=== PATIENT | female | born 1955 | race Caucasian/White ===

== ENCOUNTER 2020-09-28 10:31 | Outpatient (REF) | payer MEDICARE, OTHER, SELFPAY ==
[2020-09-28 14:52] LABS: Estimated Average Glucose 117 mg/dL; Hemoglobin A1c % 5.7 %
== END 2020-09-28 10:32 | disposition home or self-care (01) ==
LOC: HO.HMGCLDS 10:31
PROVIDERS: PCP Internal Medicine; Visit Provider Internal Medicine
DX: F32.9 Major depressive disorder, single episode, unspecified (principal); R73.9 Hyperglycemia, unspecified
CPT/HCPCS: 83036

== ENCOUNTER 2021-12-04 07:22 | Outpatient (REF) | payer MEDICARE, OTHER, SELFPAY ==
--- NOTE | ~2021-12-04 | XR_ITS ---
EXAMINATION: XR HAND, LEFT CLINICAL INFORMATION: Pain. COMPARISON: None TECHNIQUE: PA, lateral, and oblique views of the left hand. FINDINGS: There is mild bony demineralization. There is mild osteoarthritic change of the second distal interphalangeal joint, with peripheral osteophyte formation. No fracture or dislocation is seen. The proximal and distal carpal rows are intact. The soft tissue planes are unremarkable, without gas or foreign body. XR/XR hand LT min 3V IMPRESSION: 1. There is mild osteoarthritic change of the second distal interphalangeal joint. 2. No fracture or dislocation is seen.
== END 2021-12-04 07:23 | disposition home or self-care (01) ==
LOC: HO.HOSX 07:22
PROVIDERS: Visit Provider Physician Assistant
DX: M65.342 Trigger finger, left ring finger (principal)
CPT/HCPCS: 73130; 99202

== ENCOUNTER 2021-12-06 11:39 | Outpatient (REF) | payer MEDICARE, OTHER, SELFPAY ==
--- NOTE | ~2021-12-06 | MM_ITS ---
EXAMINATION: MM SCREENING DIGITAL BREAST TOMOSYNTHESIS, BILATERAL CLINICAL INFORMATION: Screening. Asymptomatic. The lifetime risk of breast cancer based on the Tyrer-Cuzick Model is 5.1%. COMPARISON: Mammography: August 02, 2020 and studies dating back to August 04, 2013 TECHNIQUE: Digital breast tomosynthesis is performed in both the craniocaudal and mediolateral oblique views along with computer-aided detection (CAD). Synthesized 2D images are generated from the tomosynthesis. FINDINGS: There are scattered areas of fibroglandular density (ACR BI-RADS breast composition Category b). There are no significant masses, abnormal calcifications, or other abnormalities. MM/MM tomosynthesis screening BI IMPRESSION: There are no significant changes from prior study. ASSESSMENT: BI-RADS 1: Negative RECOMMENDATION: Routine annual mammography screening. This patient's information was entered into a reminder system with a target due date for their next mammogram.
== END 2021-12-06 11:40 | disposition home or self-care (01) ==
LOC: HO.MAMMO 11:39
PROVIDERS: Visit Provider Internal Medicine
DX: Z12.31 Encounter for screening mammogram for malignant neoplasm of breast (principal)
CPT/HCPCS: 77063; 77067

== ENCOUNTER → 2022-01-15 09:43 | Outpatient (BNVA) | payer MEDICARE, OTHER, SELFPAY | PROVIDERS: PCP Internal Medicine; Visit Provider Physician Assistant | DX: M65.342 Trigger finger, left ring finger (principal) | CPT/HCPCS: 99212; J1100 ==

== ENCOUNTER 2022-05-17 09:20 | Outpatient (REF) | payer MEDICARE, OTHER, SELFPAY ==
[2022-05-17 12:03] LABS: Hematocrit 43.9 % (37.0-47.0); Hemoglobin 14.6 g/dl (12.0-16.0); Mean Corpuscular HGB Conc 33.3 g/dl (31.0-35.0); Mean Corpuscular Hemoglobin 29.4 pg (27.0-33.0); Mean Corpuscular Volume 88.5 fL (80.0-98.0); Platelet Count 292 X10*3/uL (160-400); Red Blood Count 4.96 X10*6/uL (4.20-5.50); Red Cell Distribution Width 13.1 % (11.0-16.0); White Blood Count 7.2 X10*3/uL (4.8-10.8)
[2022-05-17 12:32] LABS: Alanine Aminotransferase 18 U/L (0-31); Albumin Level 4.4 g/dL (3.5-5.0); Alkaline Phosphatase 83 U/L (39-117); Anion Gap 14 (12-20); Aspartate Amino Transferase 18 U/L (5-31); Bilirubin Total 0.5 mg/dL (0.0-1.0); Blood Urea Nitrogen 16 mg/dL (9-16); Calcium 9.3 mg/dL (8.4-10.2); Carbon Dioxide 26 mmol/L (22-29); Chloride 104 mmol/L (96-108); Cholesterol 140 mg/dL; Estimated Glomerular Filt Rate > 60; Glucose Fasting 115 mg/dL (60-99); HDL Cholesterol 56 mg/dL; LDL Cholesterol Calculated 61 mg/dl; Potassium 3.8 mmol/L (3.3-5.1); Sodium 140 mmol/L (135-145); Total Protein 7.4 g/dL (6.5-8.0); Triglycerides 119 mg/dL
[2022-05-17 12:50] LABS: Estimated Average Glucose 117 mg/dL; Hemoglobin A1c % 5.7 %
[2022-05-17 13:01] LABS: Vitamin D 25-OH Total 23.9 ng/mL (>30)
== END 2022-05-17 09:21 | disposition home or self-care (01) ==
LOC: HO.HMGCLDS 09:20
PROVIDERS: PCP Internal Medicine; Visit Provider Internal Medicine
DX: I10 Essential (primary) hypertension (principal); E78.5 Hyperlipidemia, unspecified; R73.9 Hyperglycemia, unspecified
CPT/HCPCS: 36415; 80053; 80061; 82306; 83036; 85027

== ENCOUNTER 2022-07-25 13:30 | Outpatient (REF) | payer MEDICARE, OTHER, SELFPAY ==
[2022-07-25 17:05] LABS: Anion Gap 14 (12-20); Blood Urea Nitrogen 19 mg/dL (9-16); Calcium 9.5 mg/dL (8.4-10.2); Carbon Dioxide 27 mmol/L (22-29); Chloride 103 mmol/L (96-108); Estimated Glomerular Filt Rate 57; Glucose Random 101 mg/dL (60-115); Sodium 140 mmol/L (135-145)
== END 2022-07-25 13:31 | disposition home or self-care (01) ==
LOC: HO.HMGCLDS 13:30
PROVIDERS: PCP Internal Medicine; Visit Provider Internal Medicine
DX: I10 Essential (primary) hypertension (principal)
CPT/HCPCS: 36415; 80048

== ENCOUNTER 2022-09-04 11:29 | Outpatient (REF) | payer MEDICARE, OTHER, SELFPAY | END 2022-09-04 11:30 | disposition home or self-care (01) | LOC: HO.SH 11:29 | PROVIDERS: Visit Provider Internal Medicine | DX: Z01.118 Encounter for examination of ears and hearing with other abnormal findings (principal); H90.3 Sensorineural hearing loss, bilateral | CPT/HCPCS: 92557 ==

== ENCOUNTER 2022-09-04 12:29 | Outpatient (REF) | payer SELFPAY ==
--- NOTE | 2022-09-04 15:43 | MHC.AU.HAS ---
Hearing Aid Evaluation Date of Visit: 09/04/22 Historical Information: Description of Hearing: Within normal sloping to moderately-severe sensorineural hearing loss, bilaterally Hearing Aid Prescription: Based on the individual?s shared listening needs, communication environments, dexterity, desire for connectivity, and personal preferences, the following prescription for amplification has been made: Right ear: Immunology Specialist: Phonak Model: Audeo P70-R Battery Size: Rechargeable Color: P5 - Champagne Regasification Plant Operator: 1M Type of Mold: Small open dome Left ear: Left ear prescription to be same as Right Hearing Aid above: Immunology Specialist: Phonak Model: Audeo P70-R Battery Size: Rechargeable Color: P5 - Champagne Regasification Plant Operator: 1M Type of Mold: Small open dome Plan of Care: Patient wishes to purchase hearing aids as prescribed Action Taken/Action Needed: Hearing Instrument Fitting to be scheduled when materials arrive Primary Diagnosis: H90.3 Bilateral Sensorineural Hearing Loss Signature: Provider: Darwin Lowe, CCC-A
== END 2022-09-04 12:30 | disposition home or self-care (01) ==
LOC: HO.HAP 12:29
PROVIDERS: Visit Provider Internal Medicine
DX: Z46.1 Encounter for fitting and adjustment of hearing aid (principal); H90.3 Sensorineural hearing loss, bilateral
CPT/HCPCS: 92590

== ENCOUNTER 2022-09-30 14:28 | Outpatient (REF) | payer SELFPAY ==
--- NOTE | 2022-09-30 15:48 | MHC.AU.HFA ---
Hearing Instrument Fitting- Adult- Binaural Date of Visit: 09/30/22 Hearing Instruments Dispensed: Right Ear: Phonak Audeo P70-R SN: [id number] Color: Champagne Repair Warranty: 12/03/2025 Loss and Damage Warranty: 12/03/2025 Service Plan: 09/30/2025 Battery Size: Rechargeable [employer] Hand Finisher: 1M Type of Mold: Small open dome Type of Wax Guard: CeruShield Left Ear: Phonak Audeo P70-R SN: [id number] Color: Champagne Repair Warranty: 12/03/2025 Loss and Damage Warranty: 12/03/2025 Service Plan: 09/30/2025 Battery Size: Rechargeable [employer] Hand Finisher: 1M Type of Mold: Small open dome Type of Wax Guard: CeruShield Summary of Fitting: Feedback air quality manager performed. Could not perform real ear measures due to technical difficulties - will perform at follow up visit. Comfortable at NAL-NL2 initial fit settings. Discussed care, use, and rechargeability including changing wax guards and domes, manually turning on/off, and volume control use. Practiced insertion and removal. Luann Walter had some difficulty inserting the hearing aids but is motivated to practiced. Explained importance of consistent use and acclimatization period. Recommendations: A hearing instrument follow-up was scheduled. Please call our clinic with any questions or concerns. Recommendations (Other): Need to perform real ear measurements at follow up. Diagnosis Code(s): Primary Diagnosis: H90.3 Bilateral Sensorineural Hearing Loss Signature: Provider: Darwin Lowe, [facility]
== END 2022-09-30 14:29 | disposition home or self-care (01) ==
LOC: HO.HAP 14:28
PROVIDERS: Visit Provider Internal Medicine
DX: Z46.1 Encounter for fitting and adjustment of hearing aid (principal); H90.3 Sensorineural hearing loss, bilateral
CPT/HCPCS: V5261; V5299

== ENCOUNTER 2022-10-29 11:30 | Outpatient (REF) | payer SELFPAY ==
--- NOTE | 2022-10-29 12:45 | MHC.AU.HA3 ---
Hearing Instrument Follow-Up- Binaural Date of Visit: 10/29/22 Right Ear: Yon, Model, Color, Serial Number: Cris Min P70-R SN: [id number] Color: Saraye Metal Sprayer Repair Warranty: 12/03/2025 Metal Sprayer Loss and Damage Warranty: 12/03/2025 [facility] Service Plan: 09/30/2025 Battery Size: Rechargeable Head Stock Operator/Slim Tube: 1M Earmold/Dome/CShell/SlimTip:Small open dome Type of Wax Guard: CeruShield Dispensed By: [facility] Date of Fittin09/30/2022 Left Ear: Yon, Model, Color, Serial Number: Cris Min P70-R SN: [id number] Color: Saraye Metal Sprayer Repair Warranty: 12/03/2025 Metal Sprayer Loss and Damage Warranty: 12/03/2025 [facility] Service Plan: 09/30/2025 Battery Size: Rechargeable Head Stock Operator/Slim Tube: 1M Earmold/Dome/CShell/SlimTip: Small open dome Type of Wax Guard: CeruShield Dispensed By: [facility] Date of Fittin09/30/2022 Follow-Up Summary: Luann Walter reported that overall she is doing well with the hearing aids. She notices significant benefit, especially hearing her grandchildren. Reviewed manually turning the hearing aids on/off, changing the wax guards and domes, and volume control use. Otherwise, Luann Walter has been satisfied with the sound quality and overall fit of the hearing aids. Did not perform real ear measurements, as Luann Walter did not want any programming adjustments. Data logging showed about 8 hours of use per day. Recommendations: Hearing instrument maintenance in 6 months, or sooner if needed. Recommendations (Other): Luann Walter reported that she does not need an additional follow up appointment at this time. With that, she knows this rocha the end of the adjustment period and she can no longer return the hearing aids after today. Diagnosis Code(s): Primary Diagnosis: H90.3 Bilateral Sensorineural Hearing Loss Signature: Provider: Darwin Lowe, [facility]
== END 2022-10-29 11:31 | disposition home or self-care (01) ==
LOC: HO.HAP 11:30
PROVIDERS: Visit Provider Internal Medicine
DX: Z13.89 Encounter for screening for other disorder (principal)

== ENCOUNTER 2022-11-16 09:16 | Outpatient (REF) | payer MEDICARE, OTHER, SELFPAY ==
[2022-11-16 11:19] LABS: Estimated Average Glucose 105 mg/dL; Hemoglobin A1c % 5.3 %
[2022-11-16 11:26] LABS: Alanine Aminotransferase 9 U/L (0-31); Albumin Level 4.4 g/dL (3.5-5.0); Alkaline Phosphatase 91 U/L (39-117); Anion Gap 13 (12-20); Aspartate Amino Transferase 14 U/L (5-31); Bilirubin Total 0.5 mg/dL (0.0-1.0); Blood Urea Nitrogen 11 mg/dL (9-16); Calcium 9.4 mg/dL (8.4-10.2); Carbon Dioxide 26 mmol/L (22-29); Chloride 106 mmol/L (96-108); Estimated Glomerular Filt Rate > 60; Glucose Fasting 114 mg/dL (60-99); Potassium 4.2 mmol/L (3.3-5.1); Sodium 141 mmol/L (135-145); Total Protein 7.1 g/dL (6.5-8.0)
== END 2022-11-16 09:17 | disposition home or self-care (01) ==
LOC: HO.HMGCLDS 09:16
PROVIDERS: PCP Internal Medicine; Visit Provider Internal Medicine
DX: I10 Essential (primary) hypertension (principal); R73.9 Hyperglycemia, unspecified; E78.5 Hyperlipidemia, unspecified
CPT/HCPCS: 36415; 80053; 83036

== ENCOUNTER 2022-12-12 11:45 | Outpatient (REF) | payer MEDICARE, OTHER, SELFPAY ==
--- NOTE | ~2022-12-12 | MM_ITS ---
EXAMINATION: MM SCREENING DIGITAL BREAST TOMOSYNTHESIS, BILATERAL CLINICAL INFORMATION: Screening. Asymptomatic. The lifetime risk of breast cancer based on the Tyrer-Cuzick Model is 8%. COMPARISON: Mammography: December 06, 2021 and studies dating back to August 04, 2013. TECHNIQUE: Digital breast tomosynthesis is performed in both the craniocaudal and mediolateral oblique views along with computer-aided detection (CAD). Synthesized 2D images are generated from the tomosynthesis. FINDINGS: The breasts are heterogeneously dense, which may obscure small masses (ACR BI-RADS breast composition Category c). There are no new significant masses, abnormal calcifications, or other abnormalities. Stable postsurgical change right breast noted. MM/MM tomosynthesis screening BI IMPRESSION: No significant changes from prior exam. ASSESSMENT: BI-RADS 2: Benign RECOMMENDATION: Routine annual mammography screening. This patient's information was entered into a reminder system with a target due date for their next mammogram.
== END 2022-12-12 11:46 | disposition home or self-care (01) ==
LOC: HO.MAMMO 11:45
PROVIDERS: PCP Internal Medicine; Visit Provider Internal Medicine
DX: Z12.31 Encounter for screening mammogram for malignant neoplasm of breast (principal)
CPT/HCPCS: 77063; 77067

== ENCOUNTER 2023-06-17 10:17 | Outpatient (REF) | payer MEDICARE, OTHER, SELFPAY ==
[2023-06-17 13:20] LABS: MANUAL DIFF FLAG NO
[2023-06-17 13:59] LABS: Basophils Absolute Auto 0.1 X10*3/uL (0.0-0.2); Basophils Percent Auto 0.6 % (0-2); Eosinophils Absolute Auto 0.2 X10*3/uL (0.0-0.4); Eosinophils Percent Auto 2.6 % (0-4); Hematocrit 43.6 % (37.0-47.0); Hemoglobin 14.3 g/dl (12.0-16.0); Imm Gran Abs Auto 0.03 X10*3/uL (0.00-0.03); Imm Gran Pct Auto 0.3 % (0.0-0.4); Lymphocytes Absolute Auto 1.9 X10*3/uL (1.2-4.9); Lymphocytes Percent Auto 21.6 % (20-40); Mean Corpuscular HGB Conc 32.8 g/dl (31.0-35.0); Mean Corpuscular Hemoglobin 29.7 pg (27.0-33.0); Mean Corpuscular Volume 90.5 fL (80.0-98.0); Mean Platelet Volume 10.7 fL (9.4-12.3); Monocytes Absolute Auto 0.6 X10*3/uL (0.1-1.2); Monocytes Percent Auto 6.6 % (2-11); Neutrophils Percent Auto 68.3 % (45-73); Platelet Count 284 X10*3/uL (160-400); Red Blood Count 4.82 X10*6/uL (4.20-5.50); Red Cell Distribution Width 12.9 % (11.0-16.0); White Blood Count 8.8 X10*3/uL (4.8-10.8)
[2023-06-17 14:05] LABS: Estimated Average Glucose 111 mg/dL; Hemoglobin A1c % 5.5 %
[2023-06-17 14:29] LABS: Alanine Aminotransferase 15 U/L (0-31); Albumin Level 4.5 g/dL (3.5-5.0); Alkaline Phosphatase 86 U/L (39-117); Anion Gap 14 (12-20); Aspartate Amino Transferase 17 U/L (5-31); Bilirubin Total 0.9 mg/dL (0.0-1.0); Blood Urea Nitrogen 18 mg/dL (9-16); Carbon Dioxide 27 mmol/L (22-29); Chloride 104 mmol/L (96-108); Cholesterol 155 mg/dL; Estimated Glomerular Filt Rate 57; Glucose Fasting 107 mg/dL (60-99); HDL Cholesterol 59 mg/dL; LDL Cholesterol Calculated 71 mg/dl; Potassium 3.9 mmol/L (3.3-5.1); Sodium 141 mmol/L (135-145); Total Protein 7.8 g/dL (6.5-8.0); Triglycerides 129 mg/dL
[2023-06-17 14:49] LABS: TSH reflex Free T4 0.76 uIU/mL (0.32-4.0); Vitamin D 25-OH Total 23.5 ng/mL (>30)
== END 2023-06-17 10:18 | disposition home or self-care (01) ==
LOC: HO.HMGCLDS 10:17
PROVIDERS: PCP Internal Medicine; Visit Provider Internal Medicine
DX: I10 Essential (primary) hypertension (principal); E78.5 Hyperlipidemia, unspecified; R73.9 Hyperglycemia, unspecified; E55.9 Vitamin D deficiency, unspecified
CPT/HCPCS: 36415; 80053; 80061; 82306; 83036; 84443; 85025

== ENCOUNTER 2023-06-19 12:01 | Outpatient (AMB) | payer MEDICARE, OTHER, SELFPAY ==
--- NOTE | 2023-06-19 12:05 | A.OFFPC_ITS ---
Vital Signs 06/19/23 12:06 Height 5 ft 5 in Weight 180 lb BMI 30.0 BP 125/80 Blood Pressure Location Lt brachial Position Sitting Pulse 72 Pulse Source Pulse Oximeter Pulse Oximetry (%) 98 Oxygen Delivery Method Room Air Intake Visit Reasons: PE/Hypertension Intake Note: pt is here for a PE Allergies latex Allergy (Mild, Uncoded 06/19/23 12:08) rash shellfish Allergy (Mild, Uncoded 06/19/23 12:08) rash Medication List - Last Reconciled 06/19/23 by Cari Gonzalez MD atorvastatin 20 mg PO DAILY losartan 100 mg PO DAILY 90 days sertraline 50 mg PO DAILY triamterene-hydrochlorothiazid 37.5-25 mg 1 tab PO DAILY Tobacco use date assessed: 06/19/23 Fall risk assessment: No Falls in past year Dental Screening Dental Screen Date: 06/19/23 Did you have a dental visit in the last 12 months?: Yes Did you have a dental problem in the last 6 months where you did not have access to dental care?: No Was dental information given to patient?: Patient has dentist HPI PE/Hypertension HPI Details Pt presents for PE. PFSH Medical History Adenoma of colon Annual physical exam Depression Echocardiogram abnormal Hallux valgus Hand pain, left History of mammogram Hyperglycemia Hyperlipidemia Hypertension Vitamin D deficiency Surgical History H/O colonoscopy Family History Father Colon cancer Mother Stroke Social History Housing: House Patient Tobacco Use Status: Never used Tobacco e-Cigarette/Vaping Use: Never Used Current occupational status: retired Current occupation: Lt handed Cognitive needs: No Hearing needs: No Vision needs: Yes Questionnaire Thrive Questionnaire Date Thrive assessed: 03/17/23 JACE-7 AMB Questionnaire JACE-7 Date JACE - 7 assessed: 03/17/23 Source: Developed by Drs. Carroll Key, Yajaira Patterson, Jose Bahena and colleagues, with an educational nicolás from [employer]. Review of Systems Const All systems reviewed & are unremarkable except as noted in HPI and below Reports no additional complaints Eyes Reports no additional complaints ENT Reports no additional complaints Card Reports no additional complaints Resp Reports no additional complaints GI Reports no additional complaints Physical exam (Primary Care) Vital Signs: Last Vital Signs Pulse 72 06/19/23 12:06 BP 168/100 H 06/19/23 12:06 Pulse Ox 98 06/19/23 12:06 Oxygen Delivery Method Room Air 06/19/23 12:06 BMI result Body Mass Index 30.0 Tobacco/Smoking Status: Tobacco use Status Tobacco use date assessed 06/19/23 06/19/23 12:10 Patient Tobacco Use Status Never used Tobacco 06/19/23 12:10 e-Cigarette/Vaping Use Never Used 06/19/23 12:10 Thrive Assessment: Date of Thrive Assessment Date Thrive assessed 03/17/23 06/19/23 12:10 Const General: no acute distress HENMT Mouth: Normal oral and palatal mucosa present Eyes General: appearance normal, both eyes and all related structures Neck Neck: Yes no lymphadenopathy and Yes supple Resp Effort & Inspection: normal respiratory effort Auscultation: clear to auscultation bilaterally Cardio Rhythm: regular rhythm Heart sounds: S1 normal heart sound present and S2 normal heart sound present GI Inspection: Yes normal to inspection Palpation (GI): Soft to palpation Percussion: Yes normal to percussion Auscultation: normal bowel sounds Assessment and Plan Assessment & Plan (1) Annual physical exam: Code(s): Z00.00 - Encounter for general adult medical examination without abnormal findings Plan: well balanced diet, regular exercise, weight loss , f/u in 6 months with labs before (2) Hyperlipidemia: Code(s): E78.5 - Hyperlipidemia, unspecified Plan: cont statin (3) Hypertension: Comment: BP goal less than 130/80 Code(s): I10 - Essential (primary) hypertension Plan: cont meds (4) Hyperglycemia: Code(s): R73.9 - Hyperglycemia, unspecified Plan: A1C 5.5, cont ADA diet, weight loss Orders: Orders Comprehensive [place]. Panel Fast 6 Months E78.5 - Hyperlipidemia, unspecified, I10 - Essential (primary) hypertension, R73.9 - Hyperglycemia, unspecified, Z00.00 - Encounter for general adult medical examination without abnormal findings Hemoglobin A1c 6 Months E78.5 - Hyperlipidemia, unspecified, I10 - Essential (primary) hypertension, R73.9 - Hyperglycemia, unspecified, Z00.00 - Encounter for general adult medical examination without abnormal findings Lipid Panel 6 Months E78.5 - Hyperlipidemia, unspecified, I10 - Essential (primary) hypertension, R73.9 - Hyperglycemia, unspecified, Z00.00 - Encounter for general adult medical examination without abnormal findings TSH reflex Free T4 6 Months E78.5 - Hyperlipidemia, unspecified, I10 - Essential (primary) hypertension, R73.9 - Hyperglycemia, unspecified, Z00.00 - Encounter for general adult medical examination without abnormal findings Coding Level of Care Code Est Pt Prev Care >65y(71701) Diagnoses Annual physical exam Z00.00 Hyperlipidemia E78.5 Hypertension I10 Hyperglycemia R73.9
[2023-06-19 12:06] VITALS: BP 125/80; PULSE 72; O2SAT 98
== END 2023-06-19 12:58 | disposition home or self-care (01) ==
PROVIDERS: PCP Internal Medicine; Visit Provider Internal Medicine
DX: Z00.00 Encounter for general adult medical examination without abnormal findings (principal); E78.5 Hyperlipidemia, unspecified; I10 Essential (primary) hypertension; R73.9 Hyperglycemia, unspecified
CPT/HCPCS: 99397

== ENCOUNTER 2023-11-05 12:59 | Outpatient (REF) | payer SELFPAY | END 2023-11-05 13:00 | disposition home or self-care (01) | LOC: HO.HAP 12:59 | PROVIDERS: Visit Provider Internal Medicine | DX: Z13.89 Encounter for screening for other disorder (principal) ==

== ENCOUNTER 2023-11-24 12:25 | Outpatient (REF) | payer SELFPAY ==
--- NOTE | 2023-11-24 14:07 | MHC.AU.HA3 ---
Hearing Instrument Follow-Up- Binaural Date of Visit: 11/24/23 Mutual Fund Sales Agent Used: Right Ear: Yon, Model, Color, Serial Number: Cris Mendezo P70-R SN: [id number] Color: Pankajagne Porcelain Enameler Repair Warranty: 12/03/2025 Porcelain Enameler Loss and Damage Warranty: 12/03/2025 [facility] Service Plan: 09/30/2025 Battery Size: Rechargeable Weekend Caregiver/Slim Tube: 1M Earmold/Dome/CShell/SlimTip:Small open dome Type of Wax Guard: CeruShield Dispensed By: [facility] Date of Fittin09/30/2022 Left Ear: Yon, Model, Color, Serial Number: Cris Omalleyeo P70-R SN: [id number] Color: Saraye Porcelain Enameler Repair Warranty: 12/03/2025 Porcelain Enameler Loss and Damage Warranty: 12/03/2025 [facility] Service Plan: 09/30/2025 Battery Size: Rechargeable Weekend Caregiver/Slim Tube: 1M Earmold/Dome/CShell/SlimTip: Small open dome Type of Wax Guard: CeruShield Dispensed By: [facility] Date of Fittin09/30/2022 Follow-Up Summary: Left aid dropped off. Found to be not amplifying. Found wax guard clogged. Cleaned and checked, changed dome and wax guard, listening check positive. Recommendations: Recommendations: Hearing instrument follow-up or maintenance as needed. Diagnosis Code(s): Primary Diagnosis: H90.3 Bilateral Sensorineural Hearing Loss Signature: Provider: Darwin Coronel, [facility]
== END 2023-11-24 12:26 | disposition home or self-care (01) ==
LOC: HO.HAP 12:25
PROVIDERS: Visit Provider Internal Medicine
DX: Z13.89 Encounter for screening for other disorder (principal)

== ENCOUNTER 2023-12-16 11:39 | Outpatient (REF) | payer MEDICARE, OTHER, SELFPAY | END 2023-12-16 11:40 | disposition home or self-care (01) | LOC: HO.MAMMO 11:39 | PROVIDERS: PCP Internal Medicine; Visit Provider Internal Medicine | DX: Z12.31 Encounter for screening mammogram for malignant neoplasm of breast (principal) | CPT/HCPCS: 77063; 77067 ==

== ENCOUNTER → 2023-12-16 11:45 | Outpatient (BNV) | payer MEDICARE, OTHER, SELFPAY | PROVIDERS: PCP Internal Medicine; Visit Provider Radiology Diagnostic Radiology | DX: Z12.31 Encounter for screening mammogram for malignant neoplasm of breast (principal) | CPT/HCPCS: 77063; 77067 ==

== ENCOUNTER 2023-12-19 10:27 | Outpatient (REF) | payer MEDICARE, OTHER, SELFPAY ==
[2023-12-19 14:11] LABS: Alanine Aminotransferase 12 U/L (0-31); Albumin Level 4.1 g/dL (3.5-5.0); Alkaline Phosphatase 85 U/L (39-117); Anion Gap 13 (12-20); Aspartate Amino Transferase 14 U/L (5-31); Bilirubin Total 0.4 mg/dL (0.0-1.0); Blood Urea Nitrogen 19 mg/dL (9-16); Calcium 9.6 mg/dL (8.4-10.2); Carbon Dioxide 26 mmol/L (22-29); Chloride 105 mmol/L (96-108); Cholesterol 148 mg/dL (<200); Estimated Glomerular Filt Rate > 60; Glucose Fasting 104 mg/dL (60-99); HDL Cholesterol 62 mg/dL (>40); LDL Cholesterol Calculated 63 mg/dL (<100); Potassium 4.1 mmol/L (3.3-5.1); Sodium 140 mmol/L (135-145); Total Protein 7.1 g/dL (6.5-8.0); Triglycerides 117 mg/dL (<150)
[2023-12-19 14:13] LABS: TSH reflex Free T4 0.62 uIU/mL (0.32-4.0)
[2023-12-19 15:01] LABS: Estimated Average Glucose 114 mg/dL; Hemoglobin A1c % 5.6 % (<6.0)
== END 2023-12-19 10:28 | disposition home or self-care (01) ==
LOC: HO.HMGCLDS 10:27
PROVIDERS: PCP Internal Medicine; Visit Provider Internal Medicine
DX: Z00.00 Encounter for general adult medical examination without abnormal findings (principal); E78.5 Hyperlipidemia, unspecified; I10 Essential (primary) hypertension; R73.9 Hyperglycemia, unspecified
CPT/HCPCS: 36415; 80053; 80061; 83036; 84443

== ENCOUNTER 2023-12-22 12:20 | Outpatient (AMB) | payer MEDICARE, OTHER, SELFPAY ==
[2023-12-22 12:40] VITALS: BP 118/76; PULSE 71; O2SAT 97; BMI 30.4
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
== END 2023-12-22 13:38 | disposition home or self-care (01) ==
PROVIDERS: PCP Internal Medicine; Visit Provider Internal Medicine
DX: M25.561 Pain in right knee (principal); Z78.0 Asymptomatic menopausal state; I10 Essential (primary) hypertension; E78.5 Hyperlipidemia, unspecified; R73.9 Hyperglycemia, unspecified
CPT/HCPCS: 99214

== ENCOUNTER 2024-01-02 14:09 | Outpatient (REF) | payer MEDICARE, OTHER, SELFPAY ==
--- NOTE | ~2024-01-02 | XR_ITS ---
EXAMINATION: XR KNEE, RIGHT CLINICAL INFORMATION: Pain. COMPARISON: None available. TECHNIQUE: Four views of the right knee. FINDINGS: Is mild loss of medial and patellofemoral compartment joint space with periarticular spurring. The lateral compartment joint space is maintained normal. There is no visible acute fracture, dislocation or subluxation seen. No aggressive lytic or sclerotic process seen. No abnormal joint effusion. XR/XR knee RT 4V IMPRESSION: Mild degenerative changes medial and patellofemoral compartment with periarticular spurring. No visible acute fracture or dislocation seen.
== END 2024-01-02 14:10 | disposition home or self-care (01) ==
LOC: HO.HMGCX 14:09
PROVIDERS: PCP Internal Medicine; Visit Provider Internal Medicine
DX: M25.561 Pain in right knee (principal)
CPT/HCPCS: 73564

== ENCOUNTER 2024-01-08 11:28 | Outpatient (REF) | payer MEDICARE, OTHER, SELFPAY ==
--- NOTE | ~2024-01-08 | MM_ITS ---
EXAMINATION: BONE DENSITOMETRY CLINICAL INDICATION: Menopause. COMPARISON: Baseline BD dated 03/26/2018. TECHNIQUE: Using a [employer] DXA System (software version: 13.1) manufactured by [employer], dual-energy x-ray absorptiometry was performed of the lumbar spine and left hip. The images are of good technical quality. Summary results are attached. FINDINGS: LEFT FEMUR, NECK: Current: BMD 0.881 g/cm2, Z-score 0.2, T-score -1.1, osteopenia. Baseline: BMD 0.918 g/cm2. LEFT FEMUR, TOTAL: Current: BMD 1.003 g/cm2, Z-score 1.0, T-score 0.0, normal, 7.8% decrease from baseline (<5% change is not significant). Baseline: BMD 1.088 g/cm2. AP SPINE L1-L4: Current: BMD 1.219 g/cm2, Z-score 1.5, T-score 0.3, normal, 2.3% increase from baseline (<5% change is not significant). Baseline: BMD 1.192 g/cm2. IDENTIFIED RISK FACTORS: Menopause. HISTORY OF FRACTURE: None listed. MEDICATIONS: Vitamin D. MM/XR DEXA axial skeleton IMPRESSION: 1. DIAGNOSIS: Osteopenia based on the lowest T-score value of -1.1 in the femoral neck applying World Health Organization criteria. 2. 10-YEAR FRACTURE RISK PREDICTION, FRAX: Major osteoporotic fracture (clinical spine, forearm, hip or shoulder) 8.8%. Hip fracture 0.9%. 3. Treatment Recommendations: NOF guidelines recommend consideration for treatment in postmenopausal women and men age 50 and older presenting with the following: -A hip or vertebral (clinical or morphometric) fracture. -T-score less than or equal to -2.5 at the femoral neck or spine after appropriate evaluation to exclude secondary causes. -Low bone mass at the hip or spine and a 10-year fracture probability by FRAX of greater than or equal to 3% for hip fracture or greater than or equal to 20% for major osteoporotic fracture based on the [place] adapted WHO algorithm. 4. Other Recommendations: All treatment decisions require clinical judgment and consideration of individual patient factors, including patient preferences, comorbidities, previous drug use, risk factors not captured in the FRAX model (e.g. frailty, falls, vitamin D deficiency, increased bone turnover, interval significant decline in bone density) and possible under or overestimation of fracture risk by FRAX. Additional medical evaluation for secondary cause of low bone mineral density may be appropriate. FUTURE SCAN RECOMMENDATION: People with diagnosed cases of osteoporosis or at high risk for fracture should have regular bone mineral density tests. For patients eligible for Medicare, routine testing is allowed once every 2 years. The testing frequency can be increased to one year for patients who have rapidly progressing disease, those who are receiving or discontinuing medical therapy to restore bone mass, or have additional risk factors.
== END 2024-01-08 11:29 | disposition home or self-care (01) ==
LOC: HO.MAMMO 11:28
PROVIDERS: PCP Internal Medicine; Visit Provider Internal Medicine
DX: Z13.820 Encounter for screening for osteoporosis (principal); Z78.0 Asymptomatic menopausal state
CPT/HCPCS: 77080

== ENCOUNTER 2024-02-13 13:00 | Outpatient (RCR) | payer MEDICARE, OTHER, SELFPAY ==
--- NOTE | 2024-01-14 14:40 | MHC.PT.EP ---
[facility] [place] Office [place] Office [place] Office [address] Jaci Moctezuma [address] [phone] F: [phone] F: [phone] F: [phone] F: [phone] Physical Therapy Plan of Care Date of Evaluation: 01/14/24 Date of Surgery: n/a Diagnosis: pain in R knee Assessment: Patient is a 68 year old female presenting to PT with complaints of pain in her R knee. Pt reports onset of pain began about 6 months ago due to insidious onset. She presents today with impairments in pain, knee ROM, knee strength, hip strength. 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 Clinical presentation today is most consistent with signs and sx associated with R knee pain and pt will benefit from skilled PT 2 week x 4 weeks to address the following problems and impairments noted upon evaluation: pain, knee ROM, knee strength, hip strength. These problems limit the patient with the following functional activities: ambulating, stair negotiation, ADLs. The prescribed treatment plan of care is medically necessary. Co-morbidities of HTN were identified and taken into considerations of plan of care. Pt was educated on HEP, role of PT, prognosis, POC. Frequency and Duration: The patient will be seen 2 x week x 4 weeks Short Term Goals: Pt will demonstrate improved R knee ROM to equal B in 2 weeks. Pt will demonstrate improved R knee MMT strength by 1/3 grade in 2 weeks. Pt will demonstrate improved hip MMT strength by 1/3 grade in 2 weeks for improved lumbopelvic stability. Penitentiary Goals: Pt will demonstrate improved LEFI score by 9 points in 4 weeks for improved functional mobility. Pt will demonstrate ability to negotiate stairs with min to no pain in 4 weeks for improved access to her home. Pt will demonstrate ability to ambulate community distances with min to no pain in 4 weeks for return to PLOF. Treatment Plan: Modalities to reduce pain, spasms and effusion. Manual therapy to restore motion and function. Therapeutic exercise to improve strength and flexibility. Neuromuscular re-education for posture and balance. Therapeutic activities to return to functional activities of daily living. Electronically signed by: Wendy Duong, PT, DPT, ATC Please sign and return to therapist. Thank you for your referral.
--- NOTE | 2024-02-13 13:54 | MHC.PT.DC ---
[facility] [place] Office [place] Office [place] Office [address] Jaci Moctezuma 140 [facility] [phone] F: [phone] F: [phone] F: [phone] F: [phone] Physical Therapy Discharge Report Diagnosis: pain in R knee Date of Surgery: n/a Date of Evaluation: 01/14/24 Date of Discharge: 02/13/24 Treatments to Date: 10 Cancellations to Date: 0 No Shows to Date: 0 Discharge Status: Achieved Goals Improved Function Independent with HEP Discharge Summary: 02/13/2024: Pt has made some progress since start of care. She is stronger and demonstrating better ROM. She is however continuing to have pain which limits her at times. She is independent and compliant with her HEP. At this point max benefits of PT have been provided and skilled PT is no longer indicated. She is in agreement with d/c today and understands to follow up with her doctor if pain continues to limit her function. Electronically signed by: Wendy Duong, PT, DPT, ATC Please sign and return to therapist. Thank you for your referral.
== END 2024-02-13 13:54 | disposition home or self-care (01) ==
LOC: HO.PTCHIC 13:00
PROVIDERS: PCP Internal Medicine; Visit Provider Internal Medicine
DX: M25.561 Pain in right knee (principal)
CPT/HCPCS: 97110; 97161

== ENCOUNTER 2024-06-22 10:19 | Outpatient (REF) | payer MEDICARE, OTHER, SELFPAY ==
[2024-06-22 13:21] LABS: MANUAL DIFF FLAG NO
[2024-06-22 13:29] LABS: Basophils Absolute Auto 0.1 X10*3/uL (0.0-0.2); Basophils Percent Auto 0.6 % (0-2); Eosinophils Absolute Auto 0.2 X10*3/uL (0.0-0.4); Eosinophils Percent Auto 2.3 % (0-4); Hematocrit 40.6 % (37.0-47.0); Hemoglobin 13.2 g/dl (12.0-16.0); Imm Gran Abs Auto 0.02 X10*3/uL (0.00-0.03); Imm Gran Pct Auto 0.2 % (0.0-0.4); Lymphocytes Absolute Auto 1.1 X10*3/uL (1.2-4.9); Lymphocytes Percent Auto 12.5 % (20-40); Mean Corpuscular HGB Conc 32.5 g/dl (31.0-35.0); Mean Corpuscular Volume 92.3 fL (80.0-98.0); Mean Platelet Volume 10.4 fL (9.4-12.3); Monocytes Absolute Auto 0.7 X10*3/uL (0.1-1.2); Monocytes Percent Auto 7.6 % (2-11); Neutrophils Absolute Auto 6.8 x10*3/uL (2.0-8.3); Neutrophils Percent Auto 76.8 % (45-73); Platelet Count 260 X10*3/uL (160-400); Red Cell Distribution Width 13.1 % (11.0-16.0); White Blood Count 8.8 X10*3/uL (4.8-10.8)
[2024-06-22 13:45] LABS: Alanine Aminotransferase 13 U/L (0-31); Albumin Level 4.1 g/dL (3.5-5.0); Alkaline Phosphatase 81 U/L (39-117); Anion Gap 14 (12-20); Aspartate Amino Transferase 14 U/L (5-31); Bilirubin Total 0.6 mg/dL (0.0-1.0); Blood Urea Nitrogen 29 mg/dL (9-16); Calcium 9.4 mg/dL (8.4-10.2); Carbon Dioxide 23 mmol/L (22-29); Chloride 108 mmol/L (96-108); Estimated Glomerular Filt Rate 33; Glucose Fasting 112 mg/dL (60-99); Sodium 141 mmol/L (135-145)
[2024-06-22 13:56] LABS: Estimated Average Glucose 117 mg/dL; Hemoglobin A1c % 5.7 % (<6.0)
== END 2024-06-22 10:20 | disposition home or self-care (01) ==
LOC: HO.HMGCLDS 10:19
PROVIDERS: PCP Internal Medicine; Visit Provider Internal Medicine
DX: E78.5 Hyperlipidemia, unspecified (principal); R73.9 Hyperglycemia, unspecified; I10 Essential (primary) hypertension; E55.9 Vitamin D deficiency, unspecified
CPT/HCPCS: 36415; 80053; 82306; 83036; 85025

== ENCOUNTER 2024-06-25 12:57 | Outpatient (AMB) | payer MEDICARE, OTHER, SELFPAY ==
[2024-06-25 12:59] VITALS: BP 118/70; PULSE 69; O2SAT 96; BMI 29.5
--- NOTE | 2024-06-25 12:59 | MHC.PC.OV ---
Vital Signs 06/25/24 12:59 Height 5 ft 5 in Weight 177 lb BMI 29.5 BP 118/70 Blood Pressure Location Rt brachial Position Sitting Pulse 69 Pulse Source Pulse Oximeter Pulse Oximetry (%) 96 Oxygen Delivery Method Room Air Intake Visit Reasons: PE/Hypertension Intake Note: Pt is here today for PE. Allergies latex Allergy (Mild, Uncoded 06/25/24 13:03) rash shellfish Allergy (Mild, Uncoded 06/25/24 13:03) rash Medication List - Last Reconciled 06/25/24 by Cari Gonzalez MD atorvastatin 20 mg PO DAILY losartan 100 mg PO DAILY 90 days sertraline 50 mg PO DAILY triamterene-hydrochlorothiazid 37.5-25 mg 1 tab PO DAILY Tobacco use date assessed: 06/25/24 Fall risk assessment: No Falls in past year Last assessed Fall Risk: 06/25/24 Dental Screening Dental Screen Date: 06/25/24 Did you have a dental visit in the last 12 months?: Yes Did you have a dental problem in the last 6 months where you did not have access to dental care?: No Was dental information given to patient?: Patient has dentist HPI PE/Hypertension HPI Details Patient presents for PE. 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 1. Little interest or pleasure in doing things: not at all 2. Feeling down, depressed, or hopeless: several days 3. Trouble falling or staying asleep, or sleeping too much: several days 4. Feeling tired or having little energy: several days 5. Poor appetite or overeating: several days 6. Feeling bad about yourself - or that you are a failure or have let yourself or your family down: several days 7. Trouble concentrating on things, such as reading the newspaper or watching television: not at all 8. Moving or speaking so slowly that other people could have noticed. Or the opposite - being so fidgety or restless that you have been moving around a lot more than usual: not at all 9. Thoughts that you would be better off or of hurting yourself in some way: not at all Total score: 5 Depression Screening Interpretation: Negative Depression Screening Done: Yes 82777 - PHQ-9 Billing: Yes Source: Developed by Drs. Carroll Key, Yajaira Patterson, Jose Bahena and colleagues, with an educational nicolás from [employer] Thrive Questionnaire Date Thrive assessed: 06/25/24 I am a: Patient What is your living situation today?: I have a steady place to live Within the past 12 months, did the food you bought not last and you didn't have the money to get more?: Never true Within the past 12 months, did you worry whether your food would run out before you got money to buy more?: Never true Do you have trouble paying for medicines?: No Do you have trouble getting transportation to medical appointments?: No Do you have trouble paying your heating and electricity bill?: No Do you have trouble taking care of your child, family member or friend?: No Do you have trouble with day-to-day activities such as bathing, preparing meals, shopping, managing finances, etc.?: No Are you currently unemployed and looking for a job?: No Are you interested in more education?: No Please select the resources that you would like help with: None Currently or been in a relationship where the following occur: No concerns reported THRIVE Score: 0 AUDIT C Alcohol Use Questionnaire (AUDIT-C) 1. How often do you have a drink containing alcohol?: 2-3 times a week 2. How many drinks containing alcohol do you have on a typical day when you are drinking?: 1 or 2 3. How often do you have six or more drinks on one occasion?: Never Total Score: 3 JACE-7 AMB Questionnaire JACE-7 Date JACE - 7 assessed: 06/25/24 Feeling nervous, anxious, or on edge: 0 = Not at all Not being able to stop or control worryin = Not at all Worrying too much about different things: 0 = Not at all Trouble relaxin = Not at all Being so restless that it is hard to sit still: 0 = Not at all Becoming easily annoyed or irritable: 1 = Several days Feeling afraid as if something awful might happen: 0 = Not at all Total JACE-7 score (0-4 normal; 5-9 mild; 10-14 moderate; 15-21 severe): 1 Source: Developed by Drs. Carroll Key, Yajaira Patterson, Jose Bahena and colleagues, with an educational nicolás from [employer] JACE-7 Assessment Billing JACE-7 Assessment Tool: AJCE-7 Assessment 86983 Review of Systems Const All systems reviewed & are unremarkable except as noted in HPI and below Eyes Reports no additional complaints ENT Reports no additional complaints Card Reports no additional complaints Resp Reports no additional complaints GI Reports no additional complaints Reports no additional complaints Musc Reports no additional complaints Physical exam (Primary Care) Vital Signs: Last Vital Signs Pulse 69 06/25/24 12:59 BP 118/70 06/25/24 12:59 Pulse Ox 96 06/25/24 12:59 Oxygen Delivery Method Room Air 06/25/24 12:59 BMI result Body Mass Index 29.5 Tobacco/Smoking Status: Tobacco use Status Tobacco use date assessed 06/25/24 06/25/24 13:05 Patient Tobacco Use Status Never used Tobacco 06/25/24 13:05 e-Cigarette/Vaping Use Never Used 06/25/24 13:00 PHQ-9: PHQ-9 Score PHQ-9: Total score 5 06/25/24 13:05 Depression Screening Interpretation: Negative Thrive Assessment: Date of Thrive Assessment Date Thrive assessed 06/25/24 06/25/24 13:05 Currently or been in a relationship where the following occur: No concerns reported Const General: no acute distress HENMT Head: Yes normal to inspection Ears: hearing grossly normal bilaterally Mouth: Normal oral and palatal mucosa present Throat: Yes posterior oropharynx normal Neck Neck: Yes supple Resp Effort & Inspection: normal respiratory effort Auscultation: clear to auscultation bilaterally Cardio Rhythm: regular rhythm Heart sounds: S1 normal heart sound present and S2 normal heart sound present GI Inspection: Yes normal to inspection Palpation (GI): Soft to palpation Percussion: Yes normal to percussion Auscultation: normal bowel sounds Assessment and Plan Assessment & Plan (1) Annual physical exam: Code(s): Z00.00 - Encounter for general adult medical examination without abnormal findings Plan: Well-balanced diet regular physical activity discussed with the patient. She is up-to-date with the mammogram and follow-up with the GI for repeat colonoscopy (2) Hypertension: Comment: BP goal less than 130/80 Code(s): I10 - Essential (primary) hypertension Plan: Continue current medications, repeat BUN and creatinine and urinalysis. Patient was advised to increase fluid intake (3) Hyperlipidemia: Code(s): E78.5 - Hyperlipidemia, unspecified Plan: Continue statin (4) Hyperglycemia: Code(s): R73.9 - Hyperglycemia, unspecified Plan: Continue ADA diet increase exercise weight loss discussed with the patient follow-up in 6 months with a fasting labs before Orders: Orders Creatinine Today I10 - Essential (primary) hypertension Blood Urea Nitrogen Today I10 - Essential (primary) hypertension Comprehensive [place]. Panel Fast 6 Months E78.5 - Hyperlipidemia, unspecified, I10 - Essential (primary) hypertension, R73.9 - Hyperglycemia, unspecified UA w Microscopic Today I10 - Essential (primary) hypertension Lipid Panel 6 Months E78.5 - Hyperlipidemia, unspecified, I10 - Essential (primary) hypertension, R73.9 - Hyperglycemia, unspecified Complete Blood Count Auto Diff 6 Months E78.5 - Hyperlipidemia, unspecified, I10 - Essential (primary) hypertension, R73.9 - Hyperglycemia, unspecified Hemoglobin A1c 6 Months E78.5 - Hyperlipidemia, unspecified, I10 - Essential (primary) hypertension, R73.9 - Hyperglycemia, unspecified Coding Level of Care Code Est Pt Prev Care >65y(68899) Diagnoses Annual physical exam Z00.00 Hypertension I10 Hyperlipidemia E78.5 Hyperglycemia R73.9 Additional Codes JACE-7 Assessment Billing - JACE-7 Assessment Tool: JACE-7 Assessment 20375 ([id number])
== END 2024-06-25 13:33 | disposition home or self-care (01) ==
PROVIDERS: PCP Internal Medicine; Visit Provider Internal Medicine
DX: Z00.00 Encounter for general adult medical examination without abnormal findings (principal); I10 Essential (primary) hypertension; E78.5 Hyperlipidemia, unspecified; R73.9 Hyperglycemia, unspecified
CPT/HCPCS: 99397

== ENCOUNTER 2024-06-25 13:42 | Outpatient (REF) | payer MEDICARE, OTHER, SELFPAY ==
[2024-06-25 16:16] LABS: Appearance Urine Clear; Color Urine Yellow; Glucose Urine UA Negative (Negative); Leukocyte Esterase Urine Negative (Negative); Nitrite Urine Negative (Negative); Specific Gravity - Urine 1.015 (1.005-1.025); Urine Blood Negative (Negative); Urine Ketones Negative (Negative); Urine Protein Negative (Neg-Trace)
[2024-06-25 16:35] LABS: Blood Urea Nitrogen 25 mg/dL (9-16); Estimated Glomerular Filt Rate 50
[2024-06-25 16:46] LABS: Bacteria Urine None Seen (None Seen); Hyaline Casts Urine 0-2 /LPF (0-2); RBC Urine 0-2 /HPF (0-2); WBC Urine 0-5 /HPF (0-5)
== END 2024-06-25 13:43 | disposition home or self-care (01) ==
LOC: HO.HMGCLDS 13:42
PROVIDERS: PCP Internal Medicine; Visit Provider Internal Medicine
DX: I10 Essential (primary) hypertension (principal)
CPT/HCPCS: 36415; 81001; 82565; 84520

== ENCOUNTER 2024-08-26 11:35 | Outpatient (REF) | payer MEDICARE, OTHER, SELFPAY | END 2024-08-26 11:36 | disposition home or self-care (01) | LOC: HO.HAP 11:35 | PROVIDERS: Visit Provider Internal Medicine | DX: Z13.89 Encounter for screening for other disorder (principal) ==

== ENCOUNTER 2024-08-27 13:29 | Outpatient (REF) | payer SELFPAY | END 2024-08-27 13:30 | disposition home or self-care (01) | LOC: HO.HAP 13:29 | PROVIDERS: Visit Provider Internal Medicine | DX: Z13.89 Encounter for screening for other disorder (principal) ==

== ENCOUNTER 2024-10-21 13:42 | Outpatient (AMB) | payer MEDICARE, OTHER, SELFPAY ==
[2024-10-21 14:00] VITALS: BP 122/78; PULSE 72; O2SAT 98; BMI 29.5
--- NOTE | 2024-10-21 14:00 | MHC.PC.OV ---
Vital Signs 10/21/24 14:00 Height 5 ft 5 in Weight 177 lb BMI 29.5 BP 122/78 Blood Pressure Location Lt brachial Position Sitting Pulse 72 Pulse Source Pulse Oximeter Pulse Oximetry (%) 98 Oxygen Delivery Method Room Air Intake Visit Reasons: Hurt knee Intake Note: Pt is here today for a sick visit. Pt states that she feel 3 weeks ago and landed on her knees. Pt c/o L knee pain. Allergies latex Allergy (Mild, Uncoded 10/21/24 14:05) rash shellfish Allergy (Mild, Uncoded 10/21/24 14:05) rash Medication List - Last Reconciled 10/21/24 by Cari Gonzalez MD atorvastatin 20 mg PO DAILY losartan 100 mg PO DAILY 90 days meloxicam 7.5 mg PO DAILY sertraline 50 mg PO DAILY triamterene-hydrochlorothiazid 37.5-25 mg 1 tab PO DAILY Tobacco use date assessed: 10/21/24 Dental Screening Dental Screen Date: 06/25/24 HPI Hurt knee HPI Details Pt c/o L knee pain throbbing at night worse when walking after a fall 3 week ago. Patient had unusual bruises which healed. She has been taking ibuprofen once or twice a day with some relief. 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 Cognitive needs: No Hearing needs: No Vision needs: Yes Questionnaire Thrive Questionnaire Date Thrive assessed: 06/25/24 I am a: Patient What is your living situation today?: I have a steady place to live Within the past 12 months, did the food you bought not last and you didn't have the money to get more?: Never true Within the past 12 months, did you worry whether your food would run out before you got money to buy more?: Never true Do you have trouble paying for medicines?: No Do you have trouble getting transportation to medical appointments?: No Do you have trouble paying your heating and electricity bill?: No Do you have trouble taking care of your child, family member or friend?: No Do you have trouble with day-to-day activities such as bathing, preparing meals, shopping, managing finances, etc.?: No Are you currently unemployed and looking for a job?: No Are you interested in more education?: No Please select the resources that you would like help with: None Currently or been in a relationship where the following occur: No concerns reported THRIVE Score: 0 JACE-7 AMB Questionnaire JACE-7 Date JACE - 7 assessed: 06/25/24 Source: Developed by Drs. Carroll Key, Yajaira Patterson, Jose Bahena and colleagues, with an educational nicolás from [employer]. Review of Systems Const All systems reviewed & are unremarkable except as noted in HPI and below ENT Reports no additional complaints Card Reports no additional complaints Resp Reports no additional complaints GI Reports no additional complaints Reports no additional complaints Physical exam (Primary Care) Vital Signs: Last Vital Signs Pulse 72 10/21/24 14:00 BP 122/78 10/21/24 14:00 Pulse Ox 98 10/21/24 14:00 Oxygen Delivery Method Room Air 10/21/24 14:00 BMI result Body Mass Index 29.5 Tobacco/Smoking Status: Tobacco use Status Tobacco use date assessed 10/21/24 10/21/24 14:06 Patient Tobacco Use Status Never used Tobacco 10/21/24 14:00 e-Cigarette/Vaping Use Never Used 10/21/24 14:00 Thrive Assessment: Date of Thrive Assessment Date Thrive assessed 06/25/24 10/21/24 14:00 Currently or been in a relationship where the following occur: No concerns reported Const General: no acute distress HENMT Head: Yes normal to inspection Face and sinus: Yes normal facial exam Resp Effort & Inspection: normal respiratory effort Auscultation: clear to auscultation bilaterally Cardio Rhythm: regular rhythm Heart sounds: S1 normal heart sound present and S2 normal heart sound present Extrem Other: There is a decreased range of motion and crepitus is left knee, there is slight soft tissue swelling medial aspect of left knee, there is a tenderness medial aspect of left knee, no erythema warmth Coding Level of Care Code Est Pt Level 3 (25673) Diagnoses Knee pain, left M25.562 Hypertension I10 Assessment & Plan Assessment & Plan (1) Knee pain, left: Code(s): M25.562 - Pain in left knee Category: Medical Plan: Check x-ray of left knee, meloxicam 7.5 mg daily for 10 days is prescribed and patient will be referred to physical therapy (2) Hypertension: Comment: BP goal less than 130/80 Code(s): I10 - Essential (primary) hypertension Category: Medical Plan: Continue current medications Orders: Orders PT Evaluation and Treatment Today M25.562 - Pain in left knee Medications: New meloxicam 7.5 mg PO DAILY 10 tabs 0RF
== END 2024-10-21 15:10 | disposition home or self-care (01) ==
PROVIDERS: PCP Internal Medicine; Visit Provider Internal Medicine
DX: M25.562 Pain in left knee (principal); I10 Essential (primary) hypertension

== ENCOUNTER 2024-12-10 10:00 | Outpatient (RCR) | payer MEDICARE, OTHER, SELFPAY ==
--- NOTE | 2024-11-12 11:09 | MHC.PT.EP ---
[facility] [place] Office [place] Office [place] Office [address] [phone] F: [phone] F: [phone] F: [phone] F: [phone] Physical Therapy Plan of Care Date of Evaluation: 11/12/24 Date of Surgery: Diagnosis: L knee pain Assessment: 68 y/o female referred to PT with L knee pain. Injury occurred mid-September when she fell landing on both flexed knees. Swelling, ecchymosis, and pain medial L knee after fall and difficulty with walking, stairs, sit to stands, and sleeping through the night. Examination shows decreased knee ROM, decreased L patella mobility, decreased L gastroc/ HS length, decreased strength and pain. S/s consistent with HS strain and ?small bakers cyst. Recommend PT 2x/week for 5 weeks to address impairments, implement HEP and optimize functional mobility. Frequency and Duration: The patient will be seen 2x/week for 5 weeks Short Term Goals: 3 weeks I with HEP Improve L knee ROM 0-130 Detention Goals: 5 weeks I with HEP and self management of sx Pt will be able to walk > 25 minutes with pain < 3/10 Pt will be able to ascend/descend stairs in step through pattern with pain < 3/10 Treatment Plan: Modalities to reduce pain, spasms and effusion. Manual therapy to restore motion and function. Therapeutic exercise to improve strength and flexibility. Neuromuscular re-education for posture and balance. Therapeutic activities to return to functional activities of daily living. Electronically signed by: Donna White PT Please sign and return to therapist. Thank you for your referral.
--- NOTE | 2024-12-10 10:46 | MHC.PT.DC ---
[facility] [place] Office [place] Office [place] Office [address] Jaci Moctezuma [address] [phone] F: [phone] F: [phone] F: [phone] F: [phone] Physical Therapy Discharge Report Diagnosis: L knee pain Date of Surgery: Date of Evaluation: 11/12/24 Date of Discharge: 12/10/24 Treatments to Date: 9 Cancellations to Date: 0 No Shows to Date: 0 Discharge Status: Achieved Goals Improved Function Independent with HEP Discharge Summary: Pt reports her foot arthritis is more limiting than knee pain. She is able to ambulate inside for prolonged periods, but limits outside d/t ice. She sometimes ascends/descend stairs in step through pattern but not always. Reports her knee has improved since starting PT, however will still have achiness and clicking at times. LEFS has improved from 32 to 51/80. Reviewed HEP and no further questions at this time. D/c to I HEP Electronically signed by: Donna White PT Please sign and return to therapist. Thank you for your referral.
== END 2024-12-10 10:46 | disposition home or self-care (01) ==
LOC: HO.PTCHIC 10:00
PROVIDERS: PCP Internal Medicine; Visit Provider Internal Medicine
DX: M25.562 Pain in left knee (principal)
CPT/HCPCS: 97110; 97140; 97161

== ENCOUNTER → 2024-12-21 11:45 | Outpatient (BNV) | payer MEDICARE, OTHER, SELFPAY | PROVIDERS: PCP Internal Medicine; Visit Provider Internal Medicine | DX: Z12.31 Encounter for screening mammogram for malignant neoplasm of breast (principal) | CPT/HCPCS: 77063; 77067 ==

== ENCOUNTER 2024-12-21 11:49 | Outpatient (REF) | payer MEDICARE, OTHER, SELFPAY | END 2024-12-21 11:50 | disposition home or self-care (01) | LOC: HO.MAMMO 11:49 | PROVIDERS: PCP Internal Medicine; Visit Provider Internal Medicine | DX: Z12.31 Encounter for screening mammogram for malignant neoplasm of breast (principal) | CPT/HCPCS: 77063; 77067 ==

== ENCOUNTER 2024-12-24 10:31 | Outpatient (REF) | payer MEDICARE, OTHER, SELFPAY ==
[2024-12-24 13:12] LABS: MANUAL DIFF FLAG NO
[2024-12-24 13:24] LABS: Basophils Absolute Auto 0.1 X10*3/uL (0.0-0.2); Basophils Percent Auto 0.6 % (0-2); Eosinophils Absolute Auto 0.3 X10*3/uL (0.0-0.4); Eosinophils Percent Auto 2.9 % (0-4); Hematocrit 40.4 % (37.0-47.0); Hemoglobin 13.4 g/dl (12.0-16.0); Imm Gran Abs Auto 0.03 X10*3/uL (0.00-0.03); Imm Gran Pct Auto 0.4 % (0.0-0.4); Lymphocytes Absolute Auto 1.7 X10*3/uL (1.2-4.9); Lymphocytes Percent Auto 20.1 % (20-40); Mean Corpuscular HGB Conc 33.2 g/dl (31.0-35.0); Mean Corpuscular Hemoglobin 29.4 pg (27.0-33.0); Mean Corpuscular Volume 88.6 fL (80.0-98.0); Mean Platelet Volume 10.4 fL (9.4-12.3); Monocytes Absolute Auto 0.5 X10*3/uL (0.1-1.2); Monocytes Percent Auto 6.2 % (2-11); Neutrophils Absolute Auto 5.9 x10*3/uL (2.0-8.3); Neutrophils Percent Auto 69.8 % (45-73); Platelet Count 289 X10*3/uL (160-400); Red Blood Count 4.56 X10*6/uL (4.20-5.50); Red Cell Distribution Width 13.2 % (11.0-16.0); White Blood Count 8.5 X10*3/uL (4.8-10.8)
[2024-12-24 13:40] LABS: Alanine Aminotransferase 14 U/L (0-31); Albumin Level 4.3 g/dL (3.5-5.0); Alkaline Phosphatase 85 U/L (39-117); Anion Gap 12 (12-20); Aspartate Amino Transferase 20 U/L (5-31); Bilirubin Total 0.7 mg/dL (0.0-1.0); Blood Urea Nitrogen 29 mg/dL (9-16); Calcium 9.6 mg/dL (8.4-10.2); Carbon Dioxide 25 mmol/L (22-29); Chloride 105 mmol/L (96-108); Cholesterol 155 mg/dL (<200); Estimated Glomerular Filt Rate > 60; Glucose Fasting 108 mg/dL (60-99); HDL Cholesterol 60 mg/dL (>40); LDL Cholesterol Calculated 70 mg/dL (<100); Sodium 138 mmol/L (135-145); Total Protein 7.7 g/dL (6.5-8.0); Triglycerides 129 mg/dL (<150)
[2024-12-24 13:46] LABS: Estimated Average Glucose 117 mg/dL; Hemoglobin A1C 135.9047 umol/L; Hemoglobin A1c % 5.7 % (<6.0)
== END 2024-12-24 10:32 | disposition home or self-care (01) ==
LOC: HO.HMGCLDS 10:31
PROVIDERS: PCP Internal Medicine; Visit Provider Internal Medicine
DX: E78.5 Hyperlipidemia, unspecified (principal); I10 Essential (primary) hypertension; R73.9 Hyperglycemia, unspecified
CPT/HCPCS: 36415; 80053; 80061; 83036; 85025

== ENCOUNTER 2024-12-27 13:43 | Outpatient (AMB) | payer MEDICARE, OTHER, SELFPAY ==
--- NOTE | 2024-12-27 13:47 | MHC.PC.OV ---
Vital Signs 12/27/24 13:48 Height 5 ft 5 in Weight 171 lb BMI 28.5 BP 122/74 Blood Pressure Location Lt brachial Position Sitting Respiration 18 Pulse 85 Pulse Source Pulse Oximeter Temp 97.9 F Temp Source Oral Pulse Oximetry (%) 95 Oxygen Delivery Method Room Air Intake Visit Reasons: 6 month follow up Intake Note: Pt is here today for 6 months follow up visit. Allergies latex Allergy (Mild, Uncoded 12/27/24 13:49) rash shellfish Allergy (Mild, Uncoded 12/27/24 13:49) rash Medication List - Last Reconciled 12/27/24 by Cari Gonzalez MD atorvastatin 20 mg PO DAILY losartan 100 mg PO DAILY 90 days sertraline 50 mg PO DAILY triamterene-hydrochlorothiazid 37.5-25 mg 1 tab PO DAILY Tobacco use date assessed: 12/27/24 Fall risk assessment: No Falls in past year Last assessed Fall Risk: 12/27/24 Dental Screening Dental Screen Date: 12/27/24 Did you have a dental visit in the last 12 months?: Yes Did you have a dental problem in the last 6 months where you did not have access to dental care?: No Was dental information given to patient?: Patient has dentist HPI 6 month follow up HPI Details Patient presents for the follow-up of hypertension hyperlipidemia stable on current medications. Patient complained physical therapy for left knee pain. She is still doing home exercises and reports occasionally pain when walking also discomfort in the left lateral thigh area and lower back. Patient denies pain radiating to left lower extremity, weakness numbness in extremities or change in bowel or bladder function. 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 1. Little interest or pleasure in doing things: not at all 2. Feeling down, depressed, or hopeless: not at all 3. Trouble falling or staying asleep, or sleeping too much: not at all 4. Feeling tired or having little energy: several days 5. Poor appetite or overeating: not at all 6. Feeling bad about yourself - or that you are a failure or have let yourself or your family down: not at all 7. Trouble concentrating on things, such as reading the newspaper or watching television: not at all 8. Moving or speaking so slowly that other people could have noticed. Or the opposite - being so fidgety or restless that you have been moving around a lot more than usual: not at all 9. Thoughts that you would be better off or of hurting yourself in some way: not at all Total score: 1 Depression Screening Interpretation: Negative Depression Screening Done: Yes [id number] - PHQ-9 Billing: Yes Source: Developed by Drs. Carroll Key, Yajaira Patterson, Jose Bahena and colleagues, with an educational nicolás from [employer]. Thrive Questionnaire Date Thrive assessed: 12/27/24 I am a: Patient What is your living situation today?: I have a steady place to live Within the past 12 months, did the food you bought not last and you didn't have the money to get more?: Never true Within the past 12 months, did you worry whether your food would run out before you got money to buy more?: Never true Do you have trouble paying for medicines?: No Do you have trouble getting transportation to medical appointments?: No Do you have trouble paying your heating and electricity bill?: No Do you have trouble taking care of your child, family member or friend?: No Do you have trouble with day-to-day activities such as bathing, preparing meals, shopping, managing finances, etc.?: No Are you currently unemployed and looking for a job?: No Are you interested in more education?: No Please select the resources that you would like help with: None Currently or been in a relationship where the following occur: No concerns reported THRIVE Score: 0 AUDIT C Alcohol Use Questionnaire (AUDIT-C) 1. How often do you have a drink containing alcohol?: 2-3 times a week 2. How many drinks containing alcohol do you have on a typical day when you are drinking?: 1 or 2 3. How often do you have six or more drinks on one occasion?: Never Total Score: 3 JACE-7 AMB Questionnaire JACE-7 Date JACE - 7 assessed: 12/27/24 Feeling nervous, anxious, or on edge: 0 = Not at all Not being able to stop or control worryin = Not at all Worrying too much about different things: 0 = Not at all Trouble relaxin = Not at all Being so restless that it is hard to sit still: 0 = Not at all Becoming easily annoyed or irritable: 0 = Not at all Feeling afraid as if something awful might happen: 0 = Not at all Total JACE-7 score (0-4 normal; 5-9 mild; 10-14 moderate; 15-21 severe): 0 Source: Developed by Drs. Carroll Key, Yajaira Patterson, Jose Bahena and colleagues, with an educational nicolás from [employer]. JACE-7 Assessment Billing JACE-7 Assessment Tool: JACE-7 Assessment 03581 Review of Systems Const All systems reviewed & are unremarkable except as noted in HPI and below Eyes Reports no additional complaints ENT Reports no additional complaints Card Reports no additional complaints Resp Reports no additional complaints GI Reports no additional complaints Reports no additional complaints Physical exam (Primary Care) Vital Signs: Last Vital Signs Temp 97.9 F 12/27/24 13:48 Pulse 85 12/27/24 13:48 Resp 18 12/27/24 13:48 BP 122/74 12/27/24 13:48 Pulse Ox 95 12/27/24 13:48 Oxygen Delivery Method Room Air 12/27/24 13:48 BMI result Body Mass Index 28.5 Tobacco/Smoking Status: Tobacco use Status Tobacco use date assessed 12/27/24 12/27/24 13:53 Patient Tobacco Use Status Never used Tobacco 12/27/24 13:53 e-Cigarette/Vaping Use Never Used 12/27/24 13:53 PHQ-9: PHQ-9 Score PHQ-9: Total score 1 12/27/24 13:53 Depression Screening Interpretation: Negative Thrive Assessment: Date of Thrive Assessment Date Thrive assessed 12/27/24 12/27/24 13:53 Currently or been in a relationship where the following occur: No concerns reported Const General: no acute distress HENMT Head: Yes normal to inspection Mouth: Normal oral and palatal mucosa present Resp Effort & Inspection: normal respiratory effort Auscultation: clear to auscultation bilaterally Cardio Rhythm: regular rhythm Heart sounds: S1 normal heart sound present and S2 normal heart sound present GI Inspection: Yes normal to inspection Palpation (GI): Soft to palpation Back/Spine/Pelvis Other: Reproducible tenderness over left greater trochanteric area, there is a full range of motion both hips, Thoracic/Lumbar Spine: thoracic and lumbar spine normal to inspection and Lasegue's sign negative Coding Level of Care Code Est Pt Level 4 (77017) Diagnoses Hypertension I10 Hyperlipidemia E78.5 Vitamin D deficiency E55.9 Trochanteric bursitis of left hip M70.62 Additional Codes JACE-7 Assessment Billing - JACE-7 Assessment Tool: JACE-7 Assessment 48309 ([id number]) PHQ-9 - 42736 - PHQ-9 Billing: Yes ([id number]) Assessment & Plan Assessment & Plan (1) Hypertension: Comment: BP goal less than 130/80 Code(s): I10 - Essential (primary) hypertension Category: Medical Plan: Continue current medications (2) Hyperlipidemia: Code(s): E78.5 - Hyperlipidemia, unspecified Category: Medical Plan: Continue statin (3) Vitamin D deficiency: Code(s): E55.9 - Vitamin D deficiency, unspecified Category: Medical Plan: Continue vitamin-D supplement (4) Trochanteric bursitis of left hip: Code(s): M70.62 - Trochanteric bursitis, left hip Category: Medical Plan: Patient was giving home exercises and will be referred to physical therapy if pain persist Orders: Orders Complete Blood Count Auto Diff 6 Months E55.9 - Vitamin D deficiency, unspecified, E78.5 - Hyperlipidemia, unspecified, I10 - Essential (primary) hypertension Lipid Panel 6 Months E55.9 - Vitamin D deficiency, unspecified, E78.5 - Hyperlipidemia, unspecified, I10 - Essential (primary) hypertension Comprehensive [place]. Panel Fast 6 Months E55.9 - Vitamin D deficiency, unspecified, E78.5 - Hyperlipidemia, unspecified, I10 - Essential (primary) hypertension TSH reflex Free T4 6 Months E55.9 - Vitamin D deficiency, unspecified, E78.5 - Hyperlipidemia, unspecified, I10 - Essential (primary) hypertension Vitamin D 25-OH Total 6 Months E55.9 - Vitamin D deficiency, unspecified, E78.5 - Hyperlipidemia, unspecified, I10 - Essential (primary) hypertension Medications: Refilled atorvastatin 20 mg PO DAILY 90 tabs 3RF losartan 100 mg PO DAILY 90 days 90 tabs 3RF sertraline 50 mg PO DAILY 90 tabs 3RF triamterene-hydrochlorothiazid 37.5-25 mg 1 tab PO DAILY 90 tabs 3RF
[2024-12-27 13:48] VITALS: BP 122/74; PULSE 85; RESP 18; TEMP 36.6; O2SAT 95; BMI 28.5
== END 2024-12-27 14:27 | disposition home or self-care (01) ==
PROVIDERS: PCP Internal Medicine; Visit Provider Internal Medicine
DX: I10 Essential (primary) hypertension (principal); E78.5 Hyperlipidemia, unspecified; E55.9 Vitamin D deficiency, unspecified; M70.62 Trochanteric bursitis, left hip

== ENCOUNTER → 2024-12-27 13:43 | Outpatient (BNVA) | payer MEDICARE, OTHER, SELFPAY | PROVIDERS: PCP Internal Medicine; Visit Provider Internal Medicine | DX: I10 Essential (primary) hypertension (principal); E78.5 Hyperlipidemia, unspecified; E55.9 Vitamin D deficiency, unspecified; M70.62 Trochanteric bursitis, left hip | CPT/HCPCS: 96127; 99212 ==

== ENCOUNTER 2024-12-31 14:09 | Outpatient (REF) | payer SELFPAY | END 2024-12-31 14:10 | disposition home or self-care (01) | LOC: HO.HAP 14:09 | PROVIDERS: Visit Provider Internal Medicine | DX: Z46.1 Encounter for fitting and adjustment of hearing aid (principal) | CPT/HCPCS: V5267 ==

== ENCOUNTER 2025-01-03 11:21 | Outpatient (REF) | payer OTHER, MEDICARE, SELFPAY | END 2025-01-03 11:22 | disposition home or self-care (01) | LOC: HO.HAP 11:21 | PROVIDERS: Visit Provider Internal Medicine | DX: Z13.89 Encounter for screening for other disorder (principal) ==

== ENCOUNTER 2025-06-28 10:26 | Outpatient (REF) | payer OTHER, MEDICARE, SELFPAY ==
[2025-06-28 13:06] LABS: MANUAL DIFF FLAG NO
[2025-06-28 13:29] LABS: Hematocrit 40.4 % (37.0-47.0); Hemoglobin 13.1 g/dl (12.0-16.0); Imm Gran Abs Auto 0.02 X10*3/uL (0.00-0.03); Imm Gran Pct Auto 0.2 % (0.0-0.4); Lymphocytes Absolute Auto 1.7 X10*3/uL (1.2-4.9); Mean Corpuscular HGB Conc 32.4 g/dl (31.0-35.0); Mean Corpuscular Hemoglobin 29.8 pg (27.0-33.0); Mean Corpuscular Volume 91.8 fL (80.0-98.0); NRBC Abs Auto 0.000 X10*3/uL (0.0-0.012); NRBC Pct Auto 0.0 /100WBC (0.0-0.2); Platelet Count 272 X10*3/uL (160-400); Red Blood Count 4.40 X10*6/uL (4.20-5.50); White Blood Count 8.1 X10*3/uL (4.8-10.8)
[2025-06-28 13:53] LABS: Alanine Aminotransferase 15 U/L (0-31); Albumin Level 4.4 g/dL (3.5-5.0); Alkaline Phosphatase 79 U/L (39-117); Anion Gap 13 (12-20); Aspartate Amino Transferase 23 U/L (5-31); Blood Urea Nitrogen 19 mg/dL (9-16); Calcium 9.2 mg/dL (8.4-10.2); Carbon Dioxide 26 mmol/L (22-29); Chloride 106 mmol/L (96-108); Cholesterol 164 mg/dL (<200); Estimated Glomerular Filt Rate 55; HDL Cholesterol 60 mg/dL (>40); Potassium 4.1 mmol/L (3.3-5.1); Sodium 141 mmol/L (135-145); Total Protein 7.0 g/dL (6.5-8.0); Triglycerides 106 mg/dL (<150)
== END 2025-06-28 10:27 | disposition home or self-care (01) ==
LOC: HO.HMGCLDS 10:26
PROVIDERS: PCP Internal Medicine; Visit Provider Internal Medicine
DX: I10 Essential (primary) hypertension (principal); E55.9 Vitamin D deficiency, unspecified; E78.5 Hyperlipidemia, unspecified
CPT/HCPCS: 36415; 80053; 80061; 82306; 84443; 85025

== ENCOUNTER 2025-07-04 13:15 | Outpatient (AMB) | payer MEDICARE, OTHER, SELFPAY ==
--- NOTE | 2025-07-04 13:21 | A.OFFPC_ITS ---
Vital Signs 07/04/25 13:28 Height 5 ft 5 in Weight 174 lb BMI 29.0 BP 122/72 Blood Pressure Location Lt brachial Position Sitting Pulse 72 Pulse Source Pulse Oximeter Pulse Oximetry (%) 95 Oxygen Delivery Method Room Air Intake Visit Reasons: PE/Hypertension Allergies latex Allergy (Mild, Uncoded 07/04/25 13:29) rash shellfish Allergy (Mild, Uncoded 07/04/25 13:29) rash Medication List - Last Reconciled 07/04/25 by Cari Gonzalez MD atorvastatin 20 mg PO DAILY losartan 100 mg PO DAILY 90 days sertraline 50 mg PO DAILY triamterene-hydrochlorothiazid 37.5-25 mg 1 tab PO DAILY Tobacco use date assessed: 12/27/24 Fall risk assessment: No Falls in past year Last assessed Fall Risk: 07/04/25 Dental Screening Dental Screen Date: 12/27/24 HPI PE/Hypertension HPI Details Pt presents for PE. 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 Cognitive needs: No Hearing needs: No Vision needs: Yes Questionnaire Thrive Questionnaire Date Thrive assessed: 12/20/24 I am a: Patient What is your living situation today?: I have a steady place to live Within the past 12 months, did the food you bought not last and you didn't have the money to get more?: Never true Within the past 12 months, did you worry whether your food would run out before you got money to buy more?: Never true Do you have trouble paying for medicines?: No Do you have trouble getting transportation to medical appointments?: No Do you have trouble paying your heating and electricity bill?: No Do you have trouble taking care of your child, family member or friend?: No Do you have trouble with day-to-day activities such as bathing, preparing meals, shopping, managing finances, etc.?: No Are you currently unemployed and looking for a job?: No Are you interested in more education?: No Please select the resources that you would like help with: None Currently or been in a relationship where the following occur: No concerns reported THRIVE Score: 0 JACE-7 AMB Questionnaire JACE-7 Date JACE - 7 assessed: 12/27/24 Source: Developed by Drs. Carroll Key, Yajaira Patterson, Jose Bahena and colleagues, with an educational nicolás from [employer]. Review of Systems Const All systems reviewed & are unremarkable except as noted in HPI and below Eyes Reports no additional complaints ENT Reports no additional complaints Card Reports no additional complaints Resp Reports no additional complaints GI Reports no additional complaints Reports no additional complaints Physical exam (Primary Care) Vital Signs: Last Vital Signs Pulse 72 07/04/25 13:28 BP 122/72 07/04/25 13:28 Pulse Ox 95 07/04/25 13:28 Oxygen Delivery Method Room Air 07/04/25 13:28 BMI result Body Mass Index 29.0 Tobacco/Smoking Status: Tobacco use Status Tobacco use date assessed 12/27/24 07/04/25 13:22 Patient Tobacco Use Status Never used Tobacco 07/04/25 13:22 e-Cigarette/Vaping Use Never Used 07/04/25 13:22 Thrive Assessment: Date of Thrive Assessment Date Thrive assessed 12/20/24 07/04/25 13:22 Currently or been in a relationship where the following occur: No concerns reported Const General: no acute distress HENMT Head: Yes normal to inspection Ears: hearing grossly normal bilaterally Eyes General: appearance normal, both eyes and all related structures EOM: EOMs intact bilaterally Neck Neck: Yes no lymphadenopathy and Yes supple Resp Effort & Inspection: normal respiratory effort Auscultation: clear to auscultation bilaterally Cardio Rhythm: regular rhythm Heart sounds: S1 normal heart sound present and S2 normal heart sound present GI Inspection: Yes normal to inspection Palpation (GI): Soft to palpation Percussion: Yes normal to percussion Auscultation: normal bowel sounds Coding Level of Care Code Est Pt Prev Care >65y(76313) Diagnoses Hypertension I10 Hyperlipidemia E78.5 Annual physical exam Z00.00 Assessment & Plan Assessment & Plan (1) Hypertension: Comment: BP goal less than 130/80 Code(s): I10 - Essential (primary) hypertension Category: Medical Plan: Continue losartan and triamterene with hydrochlorothiazide (2) Hyperlipidemia: Code(s): E78.5 - Hyperlipidemia, unspecified Category: Medical Plan: continue statin (3) Annual physical exam: Code(s): Z00.00 - Encounter for general adult medical examination without abnormal findings Category: Medical Plan: Well-balanced diet regular physical activity discussed with the patient Orders: Orders Comprehensive [place]. Panel Fast 6 Months E78.5 - Hyperlipidemia, unspecified, I10 - Essential (primary) hypertension, R73.9 - Hyperglycemia, unspecified Hemoglobin A1c 6 Months E78.5 - Hyperlipidemia, unspecified, I10 - Essential (primary) hypertension, R73.9 - Hyperglycemia, unspecified
[2025-07-04 13:28] VITALS: BP 122/72; PULSE 72; O2SAT 95; BMI 29.0
== END 2025-07-04 14:06 | disposition home or self-care (01) ==
LOC: HO.HMCC 13:16
PROVIDERS: PCP Internal Medicine; Visit Provider Internal Medicine
DX: Z00.00 Encounter for general adult medical examination without abnormal findings (principal); I10 Essential (primary) hypertension; E78.5 Hyperlipidemia, unspecified

== ENCOUNTER → 2025-07-04 13:15 | Outpatient (BNVA) | payer MEDICARE, OTHER, SELFPAY | PROVIDERS: PCP Internal Medicine; Visit Provider Internal Medicine | DX: Z00.00 Encounter for general adult medical examination without abnormal findings (principal); I10 Essential (primary) hypertension; E78.5 Hyperlipidemia, unspecified; R73.9 Hyperglycemia, unspecified | CPT/HCPCS: 99397 ==

== ENCOUNTER 2025-08-29 14:35 | Outpatient (AMB) | payer MEDICARE, OTHER, SELFPAY ==
[2025-08-29 15:13] VITALS: BP 150/88; PULSE 81; TEMP 36.4; O2SAT 97; BMI 29.8
--- NOTE | 2025-08-29 15:13 | MHC.OFFWIV ---
Intake Vital Signs 08/29/25 15:13 Height 5 ft 5 in Weight 179 lb 4 oz BMI 29.8 BP 150/88 H Blood Pressure Location Rt brachial Position Sitting Pulse 81 Pulse Source Pulse Oximeter Temp 97.5 F Temp Source Oral Pulse Oximetry (%) 97 Oxygen Delivery Method Room Air Intake Visit Reasons: EP-intestinal issues [phone] Intake Note: Patient presents with concern of C-Diff x2 days Patient Tobacco Use Status: Never used Tobacco Allergies latex Allergy (Mild, Verified 08/29/25 15:17) Rash shellfish derived (shellfish) Allergy (Mild, Verified 08/29/25 15:17) Rash Medication List - Last Reconciled 08/29/25 by Rosalba Jeff NP atorvastatin 20 mg PO DAILY loperamide (Imodium A-D) 2 mg PO Q4H losartan 100 mg PO DAILY 90 days sertraline 50 mg PO DAILY triamterene-hydrochlorothiazid 37.5-25 mg 1 tab PO DAILY Do you need a note to return to daycare/school/sports/work: No HPI HPI Comments History of Present Illness Details 69 y/o Female patient who presents to the walk in clinic with c/o Diarrhea, nausea and vomiting since Friday. Denies fevers, or chills. Denies changes to her diet. 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: 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 Cognitive needs: No Hearing needs: No Vision needs: Yes Review of Systems Const All systems reviewed & are unremarkable except as noted in HPI and below Physical Exam Vital Signs: Last Vital Signs Temp 97.5 F 08/29/25 15:13 Pulse 81 08/29/25 15:13 BP 150/88 H 08/29/25 15:13 Pulse Ox 97 08/29/25 15:13 Oxygen Delivery Method Room Air 08/29/25 15:13 BMI result Body Mass Index 29.8 Const General: no acute distress Nutritional Appearance: obese Orientation/consciousness: patient oriented x3 Resp Effort & Inspection: normal respiratory effort Auscultation: clear to auscultation bilaterally Cardio Heart sounds: S1 normal heart sound present and S2 normal heart sound present GI Inspection: Yes Abdominal panniculus present Palpation (GI): Soft to palpation, not firm, nontender, no guarding, not rigid and No hepatosplenomegaly present Auscultation: normal bowel sounds Neuro General: patient oriented x3, gait normal and moves all extremities Psych Speech and movement: Normal speech and movement present Assessment & Plan Assessment & Plan (1) Diarrhea: Code(s): R19.7 - Diarrhea, unspecified Qualifiers: Diarrhea type: unspecified type Qualified Code(s): R19.7 - Diarrhea, unspecified Plan: Ordered Imodium Advised to use Pepto-bismal BLAND diet; avoid oily, greasy ans spicy foods. F/U with PCP for possible stool sample if indicated. Medications: New loperamide (Imodium A-D) Administer after each loose stool until symptoms controlled; do not exceed 8 mg per 24 hrs 2 mg PO Q4H 30 caps 0RF loose stool R19.7 - Diarrhea, unspecified Coding Level of Care Code Est Pt Level 4 (44272) Diagnoses Diarrhea, unspecified type R19.7 Diarrhea type: unspecified type Time Spent (min) 20
== END 2025-08-29 16:12 | disposition home or self-care (01) ==
PROVIDERS: PCP Internal Medicine; Visit Provider Nurse Practitioner Family
DX: R19.7 Diarrhea, unspecified (principal)

== ENCOUNTER → 2025-08-29 14:35 | Outpatient (BNVA) | payer MEDICARE, OTHER, SELFPAY | PROVIDERS: PCP Internal Medicine; Visit Provider Nurse Practitioner Family | DX: R11.2 Nausea with vomiting, unspecified (principal); R19.7 Diarrhea, unspecified | CPT/HCPCS: 99212 ==

== ENCOUNTER 2025-10-19 10:50 | Outpatient (AMB) | payer MEDICARE, OTHER, SELFPAY ==
[2025-10-19 11:05] VITALS: BMI 29.8
--- NOTE | 2025-10-19 11:05 | MHC.OFFVIS ---
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 States her finger is catching and locking for the last month and has not improved. States its painful to pop back up and locks especially at night. Patient is interested in discussing injection. Hx of left index finger injection with Olga Lidia Mitchell on 01/15/22. 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 She complains of painful locking & catching of the left middle finger for ~1 month now, worse at night. She also has right radial sided wrist pain, worse with pinching or gripping activities. She denies any prior treatment options for this finger. She has a Hx of a left ring finger trigger injection by MARYA Mitchell on 01/15/22. [facility] Medical History (Updated 10/19/25 @ 11:55 by Juan Alberto Ma) Diarrhea Annual physical exam Hand pain, left Hyperglycemia Depression Hallux valgus Vitamin D deficiency Hyperlipidemia Adenoma of colon History of mammogram Echocardiogram abnormal Hypertension Surgical History H/O colonoscopy Family History Father Colon cancer Mother Stroke Social History Housing: House Patient Tobacco Use Status: Never used Tobacco e-Cigarette/Vaping Use: Never Used service: No Current occupational status: retired Current occupation: Lt handed Cognitive needs: No Hearing needs: No Vision needs: Yes Review of Systems Const All systems reviewed & are unremarkable except as noted in HPI and below Physical Exam Vital Signs: BMI result Body Mass Index 29.8 Const General: cooperative, healthy appearing and no acute distress Orientation/consciousness: patient oriented x3 HEENT Head: Yes normocephalic and Yes atraumatic Eyes EOM: EOMs intact bilaterally Resp Effort & Inspection: normal respiratory effort and able to speak in complete sentences Cardio Jugular venous distension: no JVD Skin General skin exam: turgor normal Rashes: no rashes Neuro General: patient oriented x3 Extrem Other: Evaluation of Left Upper Extremity: The patient is alert, oriented, and in no acute distress Neuro: Median, Ulnar, Radial nerves motor and sensory intact and sensation is normal to the tips of all digits Vascular: Cap refill brisk ROM: She can make a fist and extend all her digits Left middle finger stuck in flexion. We took some time and then locked it. We then needed to work on some range of motion exercises as she also had some tightness after being kept in flexion for a while. Tender over the middle finger a1 eric Skin: No lacerations or abrasions. General: No Ecchymosis. No Erythema or evidence of infection. Tender over the right 1st dorsal compartment Positive Roxie test on the right Psych Appearance: grossly normal Affect: normal affect Attitude: cooperative Office Procedures AMB Fracture Care Details: No fracture, injection Fracture Billing Code: Fracture Billing Code Assessment & Plan Assessment & Plan (1) Trigger middle finger of left hand: Code(s): M65.332 - Trigger finger, left middle finger Category: Medical (2) De Quervain's tenosynovitis, right: Code(s): M65.4 - Radial styloid tenosynovitis [de Quervain] Category: Medical Plan Assessment & Plan: 1. Left middle finger trigger finger I educated her about this condition I discussed operative and non-operative treatment options The patient would like to proceed with surgery She should work on ROM exercises at home The risks and benefits of operative treatment were discussed with the patient and the patient wishes to proceed with surgery. These risks include, but are not limited to risk of damage to blood vessels, nerves, tendons, infection, recurrence, incomplete relief of preoperative symptoms, persistent pain, possible need for further surgery and the risks associated with regional blocks and anesthesia. The plan is to take the patient to the operating room sometime in the next few weeks for the following procedures: 1. Left middle finger trigger release, under local All of the preoperative paperwork including the consent was reviewed today. All the patient's questions were answered. The patient understands that they will be contacted by our orthodontic assistant soon to schedule this procedure She denies Diabetes, blood thinners, asthma, heart, lung, kidney issues 2. Right De Quervains Tenosynovitis I educated her about this condition I discussed operative and non-operative treatment options The patient would like to proceed with an injection I discussed activity modification, they should limit or avoid any heavy or repetitive pinching or gripping activities She was fitted for a comfort cool brace to wear with daily activity She should work on ROM exercises, and avoid any gripping or strengthening activities I discussed the use of assistive devices for daily activity Injection #1: The risks and benefits of a steroid injection including but not limited to risk of damage to blood vessels, nerves, tendons, infection, skin bleaching, failure to improve symptoms, increased pain, and possible need for further injections or other intervention were discussed with the patient and the patient wishes to proceed with the steroid injection. Once consent was obtained, I sterilely prepped the area over the 1st dorsal compartment of the Right thumb. I then injected the 1st dorsal compartment with a combination of 1 mL of dexamethasone (4mg/ml), and 1% lidocaine. The patient tolerated the procedure well with no complications and good resolution of their symptoms prior to leaving clinic. If the patient continues to have pain 6-8 weeks following this injection, they may call to schedule appointment to discuss alternative treatment options She will follow up prn Scribed for Karoline Kim MD by Juan Alberto Ma, medical clinic manager, on 10/19/25 at 11:50 AM, EST. Coding Level of Care Code Est Pt Level 4 (66826) Diagnoses Trigger middle finger of left hand M65.332 De Quervain's tenosynovitis, right M65.4 CPT Codes Fracture Care - Fracture Billing Code: Fracture Billing Code ([id number])
== END 2025-10-19 12:18 | disposition home or self-care (01) ==
LOC: HO.HOS 10:51
PROVIDERS: PCP Internal Medicine; Visit Provider Orthopaedic Surgery
DX: M65.332 Trigger finger, left middle finger (principal); M65.4 Radial styloid tenosynovitis [de Quervain]
CPT/HCPCS: 20550; 99214

== ENCOUNTER → 2025-10-19 10:50 | Outpatient (BNVA) | payer MEDICARE, OTHER, SELFPAY | PROVIDERS: PCP Internal Medicine; Visit Provider Orthopaedic Surgery | DX: M65.332 Trigger finger, left middle finger (principal); M65.4 Radial styloid tenosynovitis [de Quervain] | CPT/HCPCS: 20550; 99212; J1100; J2003 ==